=== PATIENT | female | born 1945 | race Caucasian/White ===

== ENCOUNTER → 2016-05-27 | Outpatient (CLI) | payer OTHER | LOC: CIMAGING 12:19 | PROVIDERS: ATTEND Family Medicine | DX: R05 Cough (principal); R53.83 Other fatigue; R91.1 Solitary pulmonary nodule | CPT/HCPCS: 71020-PO ==

== ENCOUNTER 2016-05-31 09:07 | Observation (INO) | payer OTHER ==
[~2016-05-31 09:07] MED LIST: ALPRAZolam 0.5 MG TAB PO SCH
[2016-05-31] MEDS ORDERED: IPRATROPIUM/ALBUTEROL 3 ML DEYVIAL IH ONE ×2 (10:15→10:54)
[2016-05-31] MEDS ORDERED: NS 1,000 ML IV ONE (10:15)
[2016-05-31] MEDS ORDERED: predniSONE 20 MG TAB PO ONE (10:15)
--- NOTE | 2016-05-31 10:19 | EDPHY ---
H & P Stated Complaint: "I have the flu" Sxs >1wk;saw PCP,feels fatigued;coughing Time Seen by Provider: 05/31/16 10:16 HPI/ROS: HPI: 71-year-old female presents to emergency department with chief concern shortness of breath and weakness. Onset suddenly this morning. Has had a productive cough since May 21 that has worsened. Had a negative chest x- ray and negative flu swab at her primary care provider's office Dr. Jimena Spaulding 4 days ago. Denies fever, chills, myalgias, chest pain, abdominal pain, vomiting. Reports a longstanding history of loose stools that were unchanged by a recent 2 week course of antibiotic. Pack daily long-term smoker. Denies history of asthma, pneumonia, or COPD. ROS:10 point review of systems is negative other than as stated in HPI Source: Patient Exam Limitations: No limitations - Personal History Current Tetanus Diphtheria and Acellular Pertussis (TDAP): No - Medical/Surgical History Other PMH: Polymyalgia rheumatica - Family History Significant Family History: No pertinent family hx - Social History Smoking Status: Current every day smoker Additional Social History: Lives alone, smoker, negative alcohol - Physical Exam Exam: Temp 36.6, heart rate 104, respiratory rate 18, blood pressure 131/90, 89% on room air General: Awake, alert, calm, cooperative. No acute distress. Head: Normalocephalic. Atraumatic. EENT: PERRLA. EOMI. No pallor or injection. Anicteric. No nystagmus. No injection. TMs intact bilaterally with normal landmarks. No rhinnorhea, nasal passages clear. Oropharynx without redness, exudates, or lesions. Tonsils 2+ bilaterally, no exudates. Neck: Supple, nontender. No lymphadenopathy. Full range of motion. No meningismus. Respiratory: Breathing unlabored. Breath sounds with scattered rhonchi and wheezes, fine rales LLL. CV: Chest nontender, atraumatic. Heart rate regular. No murmur, distal pulses 2+ bilaterally. Brisk cap refill all extremities. GI: Abdomen soft, nontender. Bowel sounds normoactive and positive x4 quadrants. Neuro: Alert. Oriented x 3. Speech clear. Nonfocal cranial nerves throughout. Sensation intact all extremities. Skin: Skin warm, dry, intact. No rashes, abrasions, or lacerations. Skin turgor normal. Extremities: Full range of motion in all 4 extremities. Strength 5+ all extremities. Constitutional: Initial Vital Signs Temperature (C) 36.6 C 05/31/16 09:10 Heart Rate 104 H 05/31/16 09:10 Respiratory Rate 18 05/31/16 09:10 Blood Pressure 131/90 H 05/31/16 09:10 O2 Sat (%) 89 L 05/31/16 09:10 O2 Delivery Mode Room Air O2 (L/minute) 2 Allergies/Adverse Reactions: hydroxychloroquine sulfate [From Plaquenil] Allergy (Mild, Verified 05/31/16 09: 17) Hives Home Medications: Medication Instructions Recorded ALPRAZolam [Xanax 0.5 MG (*)] 0.25 mg PO DAILY 05/31/16 Medical Decision Making - Diagnostics Imaging: Chest, PA and Lateral History: Flulike symptoms, cough, dyspnea, decreased O2 sat on room air Comparison: May 27, 2016 Findings: There is increasing basilar interstitial disease. Bronchial wall thickening and prominent lung volumes are stable since May 27. A low thoracic levoscoliosis and a medial left upper lobe nodule are stable since 2009. Heart size and pulmonary vascularity are normal. There are no pleural effusions. A thoracic kyphosis is unchanged. EKG leads and oxygen tubing overlies the chest. Impression: Increasing basilar interstitial disease consistent with viral pneumonitis. Dictated By: Jonathan Eng MD ED Course/Re-evaluation: 71-year-old female presents to emergency department with shortness of breath and weakness after 2 weeks of upper respiratory symptoms. 4 days ago had negative chest x-ray negative flu swabs at her primary care provider's office. Upon arrival to ED she has 89% on room air. During exam, O2 sats dropped to 87 % on room air. Line started. Patient given 1 L normal saline, 60 mg p.o. prednisone, DuoNeb. Chest x-ray pending. 1240: Chest x-ray consistent with a pneumonitis and interstitial lung disease. After 2 duo nebs, room air oxygen saturation 84% on ambulation. Patient will be admitted to hospitalist service for further evaluation. White count 7370. Metabolic panel unremarkable. Patient admitted to hospitalist service. Differential Diagnosis: Differential diagnosis includes but is not limited to bronchitis, COPD, pneumonia, influenza, lung CA - Data Points Laboratory Results: Laboratory Results 05/31/16 10:20 05/31/16 10:20 05/31/16 05/31/16 05/31/16 12:40 10:20 10:20 WBC RBC Hgb Hct 47.9 % H % (38.0-47.0) MCV MCH MCHC RDW Plt Count MPV Neut % (Auto) Lymph % (Auto) [place] % (Auto) Eos % (Auto) Baso % (Auto) Nucleat RBC Rel Count Absolute Neuts (auto) Absolute Lymphs (auto) Absolute Monos (auto) Absolute Eos (auto) Absolute Basos (auto) Absolute Nucleated RBC Immature Gran % Immature Gran # ESR Pending Sodium 139 mEq/L mEq/L (134-144) Potassium 4.8 mEq/L mEq/L (3.5-5.2) Chloride 106 mEq/L mEq/L (97-110) Carbon Dioxide 23 mEq/l mEq/l (22-31) Anion Gap 10 mEq/L mEq/L (8-16) BUN 18 mg/dL mg/dL (7-23) Creatinine 0.8 mg/dL mg/dL (0.6-1.0) Estimated GFR > 60 Glucose 101 mg/dL H mg/dL (70-100) Calcium 9.5 mg/dL mg/dL (8.5-10.4) Influenza Typ A,B (DFA) NEGATIVE FOR FLU (NEGATIVE) 05/31/16 10:20 WBC 6.34 10^3/uL 10^3/uL (3.80-9.50) RBC 4.87 10^6/uL 10^6/uL (4.18-5.33) Hgb 16.8 g/dL H g/dL (12.6-16.3) Hct 48.0 % H % (38.0-47.0) MCV 98.6 fL fL (81.5-99.8) MCH 34.5 pg H pg (27.9-34.1) MCHC 35.0 g/dL g/dL (32.4-36.7) RDW 12.7 % % (11.5-15.2) Plt Count 239 10^3/uL 10^3/uL (150-400) MPV 9.8 fL fL (8.7-11.7) Neut % (Auto) 61.4 % % (39.3-74.2) Lymph % (Auto) 27.4 % % (15.0-45.0) [place] % (Auto) 10.4 % % (4.5-13.0) Eos % (Auto) 0.0 % L % (0.6-7.6) Baso % (Auto) 0.3 % % (0.3-1.7) Nucleat RBC Rel Count 0.0 % % (0.0-0.2) Absolute Neuts (auto) 3.89 10^3/uL 10^3/uL (1.70-6.50) Absolute Lymphs (auto) 1.74 10^3/uL 10^3/uL (1.00-3.00) Absolute Monos (auto) 0.66 10^3/uL 10^3/uL (0.30-0.80) Absolute Eos (auto) 0.00 10^3/uL L 10^3/uL (0.03-0.40) Absolute Basos (auto) 0.02 10^3/uL 10^3/uL (0.02-0.10) Absolute Nucleated RBC 0.00 10^3/uL 10^3/uL (0-0.01) Immature Gran % 0.5 % % (0.0-1.1) Immature Gran # 0.03 10^3/uL 10^3/uL (0.00-0.10) ESR Sodium Potassium Chloride Carbon Dioxide Anion Gap BUN Creatinine Estimated GFR Glucose Calcium Influenza Typ A,B (DFA) Medications Given: Discontinued Medications Albuterol/Ipratropium (Duoneb) 3 ml IH EDNOW ONE Stop: 05/31/16 10:16 Last Admin: 05/31/16 11:12 Dose: 3 ml Albuterol/Ipratropium (Duoneb) 3 ml IH EDNOW ONE Stop: 05/31/16 10:55 Last Admin: 05/31/16 11:38 Dose: 3 ml Alprazolam (Xanax) 0.25 mg PO DAILY AAKASH Stop: 11/27/16 08:59 Last Admin: 05/31/16 14:57 Dose: Not Given Sodium Chloride (Ns) 1,000 mls @ 0 mls/hr IV ONCE ONE PRN Reason: Wide Open Stop: 05/31/16 10:16 Last Admin: 05/31/16 10:27 Dose: 1,000 mls Prednisone (Prednisone) 60 mg PO EDNOW ONE Stop: 05/31/16 10:16 Last Admin: 05/31/16 11:13 Dose: 60 mg Departure - Departure Disposition: [facility] Acute Clinical Impression: Interstitial lung disease, Hypoxia Condition: Good
[2016-05-31 10:30] LABS: % IMMATURE GRANULYOCYTES 0.5 % (0.0-1.1); ABSOLUTE IMMATURE GRANULOCYTES 0.03 10^3/uL (0.00-0.10); ADD DIFF? NO; ADD MORPH? NO; ADD SCAN? NO; ATYPICAL LYMPHOCYTE FLAG 80 (0-99); FRAGMENT RBC FLAG 0 (0-99); HEMOGLOBIN 16.8 g/dL (12.6-16.3); LEFT SHIFT FLG 0 (0-99); LIPEMIA HEMOLYSIS FLAG 90 (0-99); MEAN CELL HEMOGLOBIN 34.5 pg (27.9-34.1); MEAN CELL VOLUME 98.6 fL (81.5-99.8); MEAN PLATELET VOLUME 9.8 fL (8.7-11.7); PLATELET CLUMPS FLAG 0 (0-99); PLATELET COUNT 239 10^3/uL (150-400); RED BLOOD CELL COUNT 4.87 10^6/uL (4.18-5.33); RED CELL DISTRIBUTION WIDTH 12.7 % (11.5-15.2)
[2016-05-31 10:45] LABS: ANION GAP 10 mEq/L (8-16); CALCIUM 9.5 mg/dL (8.5-10.4); CARBON DIOXIDE 23 mEq/l (22-31); CHLORIDE 106 mEq/L (97-110); CREATININE 0.8 mg/dL (0.6-1.0); GLOMERULAR FILTRATION RATE > 60; GLUCOSE 101 mg/dL (70-100); POTASSIUM 4.8 mEq/L (3.5-5.2); SODIUM 139 mEq/L (134-144)
--- NOTE | 2016-05-31 12:34 | CPEKG ---
Heart Rate: 94 RR Interval: 638 P-R Interval: 168 QRSD Interval: 76 QT Interval: 360 QTC Interval: 451 P [place]: 57 QRS [place]: 32 T Wave [place]: 44 EKG Severity - BORDERLINE ECG - EKG Impression: SINUS RHYTHM EKG Impression: BORDERLINE T WAVE ABNORMALITIES Electronically Signed By: Laury Perdomo 31-May-2016 14:39:49
--- NOTE | 2016-05-31 13:39 | PDGENHP ---
History and Physical - Chief Complaint weakness - History of Present Illness 71 y/o smoker with history of PMR presents with one week of weakness and "flu like" symptoms consisting of body aches and malaise. Reports intermittent diarrhea. Denies fever. Has a mild to moderate nonproductive cough. She stopped smoking 1 week ago due to her condition. Today she had an abrupt change in her breathing. She lives in [place] and states that she normally has good exercise tolerance and denies SOB. Today she became acutely short of breath. She denies symptoms like this in the past. In the ED she was found to be hypoxemic and was subsequently given prednisone and placed in observation History Information - Allergies/Home Medication List Allergies/Adverse Reactions: hydroxychloroquine sulfate [From Plaquenil] Allergy (Mild, Verified 05/31/16 09: 17) Hives Home Medications: ALPRAZolam [Xanax 0.5 MG (*)] 0.25 mg PO DAILY 05/31/16 [Last Taken 05/31/16] I have personally reviewed and updated: family history, medical history, social history, surgical history Past Medical History: PMR, Ovarian Cancer, Tobacco use - Surgical History Reports: appendectomy, hysterectomy Additional surgical history: LTKA, Bilat knee scoped, multiple right wrist, - Family History Additional family history: mother with valvular heart disease from rhuematic fever, colon cancer. father passed at at 95 - Social History Smoking Status: Current every day smoker (4-5 ciggaretts per day) Alcohol Use: Occasionally Drug Use: None Review of Systems ROS: 10pt was reviewed & negative except for what was stated in HPI & below Cardiac: Reports: no symptoms Respiratory: Reports: shortness of breath Gastrointestinal: Reports: diarrhea (this morning), nausea Genitourinary: Reports: no symptoms Muscolosketal: Reports: no symptoms, muscle pain Skin: Reports: no symptoms Neurological: Reports: no symptoms Hematologic/Lymphatic: Reports: no symptoms Immunologic/Allergy: Reports: no symptoms Physical Exam Temp Pulse Resp BP Pulse Ox 36.6 C 100 17 144/93 H 92 05/31/16 13:29 05/31/16 13:29 05/31/16 13:29 05/31/16 13:29 05/31/16 13:29 O2 (L/minute) 3 Selected Entries 05/31/16 12:08 O2 Sat (%) 84 L O2 Delivery Room Air Mode Constitutional: no apparent distress, appears nourished, not in pain Eyes: PERRL, anicteric sclera, EOMI Ears, Nose, Mouth, Throat: moist mucous membranes, hearing normal, ears appear normal, no oral mucosal ulcers Cardiovascular: regular rate and rhythym, no murmur, rub, or gallop, No edema Respiratory: no respiratory distress, no rales or rhonchi, clear to auscultation , reduced air movement, No expiratory wheeze, No dullness to percussion, No rhonchi Gastrointestinal: normoactive bowel sounds, soft, non-tender abdomen, no palpable masses, No guarding, No rebound Genitourinary: no bladder fullness, no bladder tenderness Skin: warm, normal color, no rashes or abrasions, no fluctuance, no induration, No mottled Musculoskeletal: full muscle strength, no muscle tenderness, normal joint ROM, no joint effusions Neurologic: AAOx3, CN II-XII Intact, No facial droop Psychiatric: interacting appropriately, not anxious, not encephalopathic, thought process linear Lymph, Heme, Immunologic: no cervical LAD, no supraclavicular LAD Lab Data & Imaging Review 05/31/16 10:20 05/31/16 10:20 WBC 6.34 10^3/uL (3.80-9.50) 05/31/16 10:20 RBC 4.87 10^6/uL (4.18-5.33) 05/31/16 10:20 Hgb 16.8 g/dL (12.6-16.3) H 05/31/16 10:20 Hct 48.0 % (38.0-47.0) H 05/31/16 10:20 MCV 98.6 fL (81.5-99.8) 05/31/16 10:20 MCH 34.5 pg (27.9-34.1) H 05/31/16 10:20 MCHC 35.0 g/dL (32.4-36.7) 05/31/16 10:20 RDW 12.7 % (11.5-15.2) 05/31/16 10:20 Plt Count 239 10^3/uL (150-400) 05/31/16 10:20 MPV 9.8 fL (8.7-11.7) 05/31/16 10:20 Neut % (Auto) 61.4 % (39.3-74.2) 05/31/16 10:20 Lymph % (Auto) 27.4 % (15.0-45.0) 05/31/16 10:20 [place] % (Auto) 10.4 % (4.5-13.0) 05/31/16 10:20 Eos % (Auto) 0.0 % (0.6-7.6) L 05/31/16 10:20 Baso % (Auto) 0.3 % (0.3-1.7) 05/31/16 10:20 Nucleat RBC Rel Count 0.0 % (0.0-0.2) 05/31/16 10:20 Absolute Neuts (auto) 3.89 10^3/uL (1.70-6.50) 05/31/16 10:20 Absolute Lymphs (auto) 1.74 10^3/uL (1.00-3.00) 05/31/16 10:20 Absolute Monos (auto) 0.66 10^3/uL (0.30-0.80) 05/31/16 10:20 Absolute Eos (auto) 0.00 10^3/uL (0.03-0.40) L 05/31/16 10:20 Absolute Basos (auto) 0.02 10^3/uL (0.02-0.10) 05/31/16 10:20 Absolute Nucleated RBC 0.00 10^3/uL (0-0.01) 05/31/16 10:20 Immature Gran % 0.5 % (0.0-1.1) 05/31/16 10:20 Immature Gran # 0.03 10^3/uL (0.00-0.10) 05/31/16 10:20 Sodium 139 mEq/L (134-144) 05/31/16 10:20 Potassium 4.8 mEq/L (3.5-5.2) 05/31/16 10:20 Chloride 106 mEq/L (97-110) 05/31/16 10:20 Carbon Dioxide 23 mEq/l (22-31) 05/31/16 10:20 Anion Gap 10 mEq/L (8-16) 05/31/16 10:20 BUN 18 mg/dL (7-23) 05/31/16 10:20 Creatinine 0.8 mg/dL (0.6-1.0) 05/31/16 10:20 Estimated GFR > 60 05/31/16 10:20 Glucose 101 mg/dL (70-100) H 05/31/16 10:20 Calcium 9.5 mg/dL (8.5-10.4) 05/31/16 10:20 Influenza Typ A,B (DFA) NEGATIVE FOR FLU (NEGATIVE) 05/31/16 12:40 Visualized and Interpreted Chest x-ray results: Yes Chest X-Ray results: normal heart size, infiltrate (bibasilar infiltrates likely viral pneumonitis) Visualized and Interpreted EKG results: Yes EKG Interpretation: Positive for: normal sinsus rhythm (94 bpm). Negative for: Q waves, ST elevation, ST depression Assessment & Plan Assessment: 71 y/o female with history of PMR and tobacco use presenting with #acute hypoxemic respiratory failure likely secondary to viral pneumonitis vs exacerbation of underlying undiagnosed interstitial lung disease #malaise likely due to acute viral illness #polycythemia likely secondary in the setting of hypoxemia vs hemoconcentration from dehydration #diarrhea Plan -place in observation -check esr given h/o pmr -continue prednisone 40mg daily -trial duonebs -will likely need short term home o2 -recommend outpatient pulmonary consult for PFTs -smoking cessation
[2016-05-31] MEDS ORDERED: ONDANSETRON DISINTEGRATING 4 MG TAB PO PRN (13:57)
[2016-05-31] MEDS ORDERED: ONDANSETRON 4 MG/2 ML VIAL IVP PRN (13:57)
[2016-05-31] MEDS ORDERED: ACETAMINOPHEN 325 MG TAB PO PRN (13:57)
[2016-05-31] MEDS ORDERED: IPRATROPIUM/ALBUTEROL 3 ML DEYVIAL IH PRN (13:58)
[2016-05-31] MEDS ORDERED: D5W 1/2 NS 1,000 ML IV SCH (14:00)
[2016-05-31 15:31] LABS: HEMATOCRIT 47.9 % (38.0-47.0)
[2016-05-31] MEDS ORDERED: IBUPROFEN 600 MG TAB PO PRN (20:32)
[2016-06-01 08:40] VITALS: BP 137/88; PULSE 93; TEMP 98.1
[2016-06-01] MEDS ORDERED: predniSONE 20 MG TAB PO SCH (09:00)
[2016-06-01] MEDS ORDERED: ALPRAZolam 0.25 MG TAB PO SCH (09:00)
[2016-06-01] MEDS ORDERED: ALPRAZolam 0.25 MG TAB PO ONE (12:13)
[2016-06-01 12:34] VITALS: RESP 17; O2SAT 85
--- NOTE | 2016-06-01 22:27 | GDS ---
DISCHARGE DIAGNOSES: 1. Acute hypoxemic respiratory failure, likely secondary to viral pneumonitis versus exacerbation o f undiagnosed interstitial lung disease or chronic obstructive pulmonary disease. 2. Polycythemia. 3. Diarrhea, improved. HISTORY: For details, please see the history and physical dated May 31, 2016. In brief, the patie skyler is a 71-year-old female with a history of tobacco abuse, polymyalgia rheumatica, who presented to the hospital with upper respiratory symptoms, body aches and malaise. She became acutely short of breath today and presents to the emergency department where she was found to be hypoxemic and was ad mitted to the hospital for further management. HOSPITAL COURSE: The patient was admitted to the observation unit. She required 2 L of oxygen by n rosales cannula. She was treated with DuoNeb and started on oral prednisone. She was noted to have a mild polycythemia with hemoglobin of 16.8. This may be related to chronic hypoxemia and tobacco abu se. She was negative for influenza. Her chest x-ray showed increasing basilar interstitial disease and bronchial wall thickening with prominent lung volumes. This picture is possibly consistent wit h viral pneumonitis, although I note mildly hyperexpanded lungs and query if she may have undiagnose d COPD with exacerbation of symptoms in the setting of a viral upper respiratory infection. Her sym ptoms improved the following day and the patient was discharged home. She will need ongoing oxygen support and is discharged home with home oxygen, and recommendation for close followup with her [facility] physician as well as outpatient consult with mix technician to evaluate for possible interst itial lung disease versus COPD with outpatient pulmonary function tests once her acute illness has r esolved. DISPOSITION: Patient is discharged home in stable condition with home oxygen at 3 L/minute. FOLLOWUP: 1. Dr. Jimena Spaulding, primary care provider, in 2-[address] Colton More, mix technician, in 1-2 weeks. DISCHARGE MEDICATIONS: Please see [facility] for complete updated outpatient medication list. New me dications on discharge include prednisone 40 mg p.o. daily #8, no refills, albuterol inhaler 2 puffs inhaled q.4 hours p.r.n., #1, no refills. /[id number]/MODL
== END 2016-06-01 15:15 | disposition home or self-care (01) ==
LOC: F1N 13:28
PROVIDERS: ADMIT Internal Medicine; ATTEND Hospitalist
DX: J96.01 Acute respiratory failure with hypoxia (principal); J84.9 Interstitial pulmonary disease, unspecified; D75.1 Secondary polycythemia; R19.7 Diarrhea, unspecified; M35.3 Polymyalgia rheumatica; F17.210 Nicotine dependence, cigarettes, uncomplicated; Z85.43 Personal history of malignant neoplasm of ovary
CPT/HCPCS: 71020; 93005; 96360; 99285; G0378

== ENCOUNTER → 2016-10-25 | Outpatient (CLI) | payer OTHER | LOC: FIMAGING 10:42 | PROVIDERS: ATTEND Internal Medicine Pulmonary Disease | DX: J44.9 Chronic obstructive pulmonary disease, unspecified (principal); M51.34 Other intervertebral disc degeneration, thoracic region ==

== ENCOUNTER → 2017-03-03 | Outpatient (CLI) | payer OTHER ==
[~2017-03-03] MED LIST changes: -ALPRAZolam 0.5 MG TAB PO SCH; +IOPAMIDOL (ISOVUE-300) 100 ML BTL ONE
== END ==
LOC: FIMAGING 10:19
PROVIDERS: ATTEND Internal Medicine Gastroenterology
DX: R10.84 Generalized abdominal pain (principal); Z85.43 Personal history of malignant neoplasm of ovary
CPT/HCPCS: Q9967

== ENCOUNTER → 2017-10-21 | Outpatient (CLI) | payer OTHER | LOC: FIMAGING 10:12 | DX: S83.511A Sprain of anterior cruciate ligament of right knee, initial encounter (principal); M25.461 Effusion, right knee ==

== ENCOUNTER → 2018-03-09 | Outpatient (CLI) | payer OTHER | LOC: FIMAGING 10:49 | PROVIDERS: ATTEND Obstetrics & Gynecology | DX: Z12.31 Encounter for screening mammogram for malignant neoplasm of breast (principal) ==